=== PATIENT | female | born 1990 | race Caucasian/White ===

== ENCOUNTER 2018-03-11 11:44 | Day surgery (SDC) | payer OTHER ==
[2018-03-03 13:50] VITALS: BMI 23.9
[2018-03-11] MEDS ORDERED: oxyCODONE HCL 5 MG TABLET PO PRN (12:06)
[2018-03-11] MEDS ORDERED: ONDANSETRON 4 MG/2 ML VIAL IVPUSH PRN (12:06)
[2018-03-11] MEDS ORDERED: LACTATED RINGERS SOLUTION 1,000 ML IV SCH (12:15)
[2018-03-11] MEDS ORDERED: BUPIVACAINE HCL 0.25% 125 MG/50 ML VIAL ONE (12:22)
[2018-03-11] MEDS ORDERED: MIDAZOLAM HCL 2 MG/2 ML SINGLE DOSE VIAL ONE (12:26)
[2018-03-11] MEDS ORDERED: LIDOCAINE 1%/EPI 1:100000 (20 ML MULTI DOSE VIAL) ONE (12:37)
[2018-03-11] MEDS ORDERED: LIDOCAINE HCL/PF 2% SDV 5ML VIAL ONE (13:08)
[2018-03-11] MEDS ORDERED: ONDANSETRON 4 MG/2 ML VIAL ONE (13:08)
[2018-03-11] MEDS ORDERED: DEXAMETHASONE SOD PHOSPHATE 4 MG/1 ML VIAL ONE (13:08)
[2018-03-11] MEDS ORDERED: PROPOFOL 20 ML ONE (13:10)
[2018-03-11] MEDS ORDERED: KETOROLAC TROMETHAMINE 30 MG/1 ML VIAL ONE (13:11)
--- NOTE | 2018-03-11 13:44 | OP ---
DATE OF OPERATION: 03/11/2018 PREOPERATIVE DIAGNOSIS: Right shoulder mass. POSTOPERATIVE DIAGNOSIS: Right shoulder mass. OPERATIVE PROCEDURE: Right shoulder mass excision. SURGEON: Nikolas Tobias MD ANESTHESIA: Local with sedation. COMPLICATIONS: None. ESTIMATED BLOOD LOSS: Minimal. INDICATIONS FOR PROCEDURE: The patient is a 27-year-old female with the above finding indicated for operative treatment. Risks, benefits, and alternatives were discussed with the patient at length. Proper informed consent was obtained. DESCRIPTION OF PROCEDURE: After proper identification of patient and correct operative site, the patient was brought to the operative room and placed supine on the operative table time prominences well padded. Sedation was given by the anesthesiologist. The patient was placed into the lateral decubitus position with all points of contact well padded. Then 1% lidocaine with epinephrine was then used for local anesthetic. The right shoulder area was prepped and draped in the usual sterile fashion. Longitudinal incision was made over the mass. Incision was taken sharply through the skin with blunt dissection of the subcutaneous tissue. The mass was consistent with a sebaceous cyst or an epidermal inclusion cyst and was excised in whole and sent for pathologic evaluation. The wound was irrigated and repaired with 4-0 Vicryl, 4-0 Monocryl, and Dermabond. Sterile dressings were applied. The patient was brought to recovery in stable condition. She tolerated the procedure well. NIKOLAS TOBIAS M.D. [id number]
[2018-03-11 14:20] VITALS: BP 113/74; PULSE 75; TEMP 98
--- NOTE | 2018-03-13 11:49 | PATH ---
Surgical Pathology Report Patient Name: ESTEBAN ART Med. Rec. #: [id number] /Age/Gender: 1990 (Age: 27) / F Account: [id number] Location: [facility] Taken: 03/11/2018 Received: 03/11/2018 Reported: 03/13/2018 Physicians: Nikolas Awan M.D. Specimen(s) Received MASS RIGHT SHOULDER Clinical History Mass right shoulder Final Diagnosis SKIN, RIGHT SHOULDER, EXCISION: EPIDERMAL INCLUSION CYST (KERATINOUS CYST). Electronically Signed Zbigniew Ayala M.D. Gross Description Received in formalin labeled "mass right shoulder," is a 1.5 x 1.3 x 0.4 cm roque, disrupted cyst and cyst contents. The cyst is sectioned and entirely submitted in one cassette. 03/12/201803/12/2018
== END 2018-03-11 14:15 | disposition home or self-care (01) ==
LOC: FASU 11:44
PROVIDERS: ATTEND Orthopaedic Surgery Hand Surgery
PROC: 0JBD0ZX Excision of Right Upper Arm Subcutaneous Tissue and Fascia, Open Approach, Diagnostic (ICD-10-PCS; principal; 2018-03-11 12:51)
DX: L72.0 Epidermal cyst (principal)
CPT/HCPCS: 84703; 88304-TC